=== PATIENT | male | born 1965 | race African-American/Black ===

== ENCOUNTER 2018-02-25 13:50 | Inpatient (IN) ==
[2018-02-25 14:45] LABS: Basophils % 0.3 %; Eosinophils % 0.1 %; Hematocrit 47.7 % (37.5-50.1); Immature Granulocytes % 0.1 % (0-4); Lymphocytes % 26.7 %; Mean Corpuscular HGB Conc 33.5 g/dL (31.6-35.5); Mean Corpuscular Hemoglobin 28.1 pg (28.0-33.3); Mean Corpuscular Volume 83.7 fL (83.0-100.0); Mean Platelet Volume 10.4 fL (9.4-12.4); Monocytes % 7.1 %; Platelet Count 196 K/mcL (140-400); Red Cell Distribution Width 14.9 % (11.5-14.5); Segmented Neutrophils % 65.7 %
[2018-02-25 14:46] LABS: Lymphocytes # 1.9 K/mcL (0.6-4.6); Monocytes # 0.5 K/mcL (0.0-1.3); Neutrophils # 4.7 K/mcL (1.6-8.9)
[2018-02-25 14:58] LABS: Bilirubin,Urine Negative (Negative); Blood,Urine Negative (Negative); Clarity,Urine Clear (Clear); Color,Urine Yellow (Yellow); Glucose,Urine (UA) Normal (Normal); Ketones,Urine Negative (Negative); Leukocyte Esterase,Urine Negative (Negative); Nitrite,Urine Negative (Negative); Protein,Urine Negative (Neg-Trace); Specific Gravity,Urine 1.012 (1.010-1.025); Urobilinogen,Urine Normal (Normal)
--- NOTE | 2018-02-25 14:59 | Emergency Department Note ---
Disposition Clinical Impression: Depression, JUNITO (generalized anxiety disorder) Disposition: Still a Patient Referrals: NONE,PCP [Primary Care Provider] - Forms: ED Satisfaction Letter Psych HPI - General Chief Complaint: ED Psychiatric Symptoms Stated Complaint: SI Time Seen by Provider: 02/25/18 14:00 Source: patient, family Mode of arrival: ambulatory Limitations: no limitations Nursing Notes Reviewed: Yes Vital Signs Reviewed: Yes - History of Present Illness HPI Narrative: 52-year-old -[place] male complaining of a four month history of worsening anxiety and depression with panic attacks. Patient states that on October 31 that he was checked into the [facility] where he remained until November 12. Patient states that he then went to a facility in [place] for 30 day observation and management. Patient states that he has had his medication switched several times at the various facilities and by his PCP. Pt complaint: feels depressed, anxiety If medical clearance, reason: psychiatric condition Onset (ago): month(s) Duration: constant, intermittent (The patient's symptoms are constant with intermittent waxing and waning) Improves with: none Worsens with: none Associated Psychiatric Symptoms: depression, anxiety Associated symptoms: Reports: shortness of breath Self harm or harm to others: denies thoughts of harming self/others, denies having a plan - Related Data Home Medications Medication Instructions Recorded Confirmed Buspirone HCl [Buspar] 15 mg PO TID 02/25/18 02/25/18 Pantoprazole Sodium [Protonix] 40 mg PO DAILY 02/25/18 02/25/18 Quetiapine Fumarate [Seroquel] 600 mg PO HS 02/25/18 02/25/18 Sertraline [Zoloft] 200 mg PO DAILY 02/25/18 02/25/18 Trazodone HCl 300 mg PO HS 02/25/18 02/25/18 cloNIDine HCl [CloNIDine HCl] 0.1 mg PO TID 02/25/18 02/25/18 hydrOXYzine pamoate [Hydroxyzine 100 mg PO QID PRN 02/25/18 02/25/18 Pamoate] Allergies Allergy/AdvReac Type Severity Reaction Status Date / Time No Known Allergies Allergy Verified 02/25/18 13:56 Constitutional: Reports: weakness, weight change Eyes: Reports: vision change Cardiovascular: Denies: chest pain Respiratory: Reports: dyspnea (Patient states that dyspnea may be due to anxiety) Gastrointestinal: Denies: abdominal pain Genitourinary: Denies: dysuria Neurological: Reports: headache (Patient has a history of cluster headaches), weakness, numbness, paresthesias Psychiatric: Reports: anxiety, depression Past Medical History - Past Medical History Medical history: Reports: GERD Psychiatric history: Reports: anxiety, depression, PTSD, previous psychiatric ho spitalization - Social History Smoking Status: Never smoker Smokeless Tobacco Status: No Alcohol use: Reports: occasionally Drug use: Reports: marijuana Physical Exam - General Limitations: no limitations General appearance: alert, in no apparent distress - Head Head exam: atraumatic, normocephalic - Eye Eye exam: Present: normal appearance, PERRL, EOMI. Absent: scleral icterus - Chest Chest inspection: Present: normal inspection, symmetric chest wall rise - Respiratory Respiratory exam: Present: normal lung sounds bilaterally. Absent: respiratory distress, accessory muscle use, prolonged expiratory phase - Cardiovascular Cardiovascular exam: Present: regular rate, normal rhythm, normal heart sounds, +S1, +S2. Absent: JVD, +S3, +S4 - Abdominal Exam Abdominal exam: Present: soft, Non-Tender, normal bowel sounds. Absent: distention, guarding, rebound, rigidity Course Course Narrative: On initial exam, patient is crying and stating that he does not feel that he will ever be his old self again. Patient admits to history of depression but states that his current symptoms of anxiety and panic attacks are new onset over the summer. Patient denies SI/HI. Consult placed to [place] [facility] for consult and possible admission. Vital Signs Temperature 97.8 F 02/25/18 13:54 Pulse Rate 75 02/25/18 13:54 Respiratory Rate 16 02/25/18 13:54 Blood Pressure 155/95 02/25/18 13:54 O2 Sat by Pulse Oximetry 100 02/25/18 13:54 Temperature 97.8 F 02/25/18 14:05 Pulse Rate 75 02/25/18 14:05 Respiratory Rate 22 02/25/18 14:05 Blood Pressure 155/95 02/25/18 14:05 O2 Sat by Pulse Oximetry 100 02/25/18 14:05 Oxygen Delivery Oxygen Delivery Room Air Psych - MDM Narrative Medical decision making narrative: Patient will be admitted to psychiatric services for workup of possible serotonin syndrome due to polypharmacy and multiple medication changes. - Lab Data Result diagrams: 02/25/18 14:16 02/25/18 14:16 Lab Results 02/25/18 02/25/18 02/25/18 Range/Units 14:16 14:16 14:40 WBC 7.2 (4.3-11.1) K/mcL RBC 5.70 H (4.19-5.50) M/mcL Hgb 16.0 (12.9-16.9) g/dL Hct 47.7 (37.5-50.1) % MCV 83.7 (83.0-100.0) fL MCH 28.1 (28.0-33.3) pg MCHC 33.5 (31.6-35.5) g/dL RDW 14.9 H (11.5-14.5) % Plt Count 196 (140-400) K/mcL MPV 10.4 (9.4-12.4) fL Immature Gran % 0.1 (0-4) % Seg Neutrophils % 65.7 % Lymphocytes % 26.7 % Monocytes % 7.1 % Eosinophils % 0.1 % Basophils % 0.3 % Neutrophils # 4.7 (1.6-8.9) K/mcL Lymphocytes # 1.9 (0.6-4.6) K/mcL Monocytes # 0.5 (0.0-1.3) K/mcL Eosinophils # 0.0 (0.0-0.6) K/mcL Basophils # 0.0 (0.0-0.2) K/mcL Sodium 140 (136-145) mEq/L Potassium 3.0 L (3.5-5.1) mEq/L Chloride 105 (98-107) mEq/L Carbon Dioxide 25 (23-29) mEq/L BUN 13 (6-20) mg/dL Creatinine 1.14 (0.70-1.30) mg/dL Est GFR ( Amer) > 60 (> 60) Est GFR (Non-Af Amer) > 60 (> 60) BUN/Creatinine Ratio 11 (6-26) Glucose 111 H (70-105) mg/dL Calculated Osmolality 291 (280-300) Calcium 10.0 (8.6-10.3) mg/dL Urine Color Yellow (Yellow) Urine Clarity Clear (Clear) Urine pH 8.0 (5.0-8.0) pH Units Ur Specific [place] 1.012 (1.010-1.025) Urine Protein Negative (Neg-Trace) mg/dL Urine Glucose (UA) Normal (Normal) mg/dL Urine Ketones Negative (Negative) mg/dL Urine Blood Negative (Negative) Urine Nitrite Negative (Negative) Urine Bilirubin Negative (Negative) Urine Urobilinogen Normal (Normal) mg/dL Ur Leukocyte Esterase Negative (Negative) Salicylates < 2.5 L (15.0-30.0) mg/dL Urine Opiates Screen (Ettcgv=310) ng/mL Acetaminophen < 10 L (10-20) mcg/mL Ur Barbiturates Screen (Mczvfr=895) ng/mL Ur Phencyclidine Scrn (Cutoff=25) ng/mL Ur Amphetamines Screen (Unprqt=2238) ng/mL U Benzodiazepines Scrn (Vnsmrp=309) ng/mL Urine Cocaine Screen (Cutoff= 300) ng/mL U Marijuana (THC) Screen (Cutoff = 50) ng/mL Ur Drug Screen Interp Ethyl Alcohol < 10 (Less than 10) mg/dL 02/25/18 Range/Units 14:40 WBC (4.3-11.1) K/mcL RBC (4.19-5.50) M/mcL Hgb (12.9-16.9) g/dL Hct (37.5-50.1) % MCV (83.0-100.0) fL MCH (28.0-33.3) pg MCHC (31.6-35.5) g/dL RDW (11.5-14.5) % Plt Count (140-400) K/mcL MPV (9.4-12.4) fL Immature Gran % (0-4) % Seg Neutrophils % % Lymphocytes % % Monocytes % % Eosinophils % % Basophils % % Neutrophils # (1.6-8.9) K/mcL Lymphocytes # (0.6-4.6) K/mcL Monocytes # (0.0-1.3) K/mcL Eosinophils # (0.0-0.6) K/mcL Basophils # (0.0-0.2) K/mcL Sodium (136-145) mEq/L Potassium (3.5-5.1) mEq/L Chloride (98-107) mEq/L Carbon Dioxide (23-29) mEq/L BUN (6-20) mg/dL Creatinine (0.70-1.30) mg/dL Est GFR ( Amer) (> 60) Est GFR (Non-Af Amer) (> 60) BUN/Creatinine Ratio (6-26) Glucose (70-105) mg/dL Calculated Osmolality (280-300) Calcium (8.6-10.3) mg/dL Urine Color (Yellow) Urine Clarity (Clear) Urine pH (5.0-8.0) pH Units Ur Specific [place] (1.010-1.025) Urine Protein (Neg-Trace) mg/dL Urine Glucose (UA) (Normal) mg/dL Urine Ketones (Negative) mg/dL Urine Blood (Negative) Urine Nitrite (Negative) Urine Bilirubin (Negative) Urine Urobilinogen (Normal) mg/dL Ur Leukocyte Esterase (Negative) Salicylates (15.0-30.0) mg/dL Urine Opiates Screen Negative (Hrlyaz=959) ng/mL Acetaminophen (10-20) mcg/mL Ur Barbiturates Screen Negative (Cssizt=485) ng/mL Ur Phencyclidine Scrn Negative (Cutoff=25) ng/mL Ur Amphetamines Screen Negative (Svzwqr=7244) ng/mL U Benzodiazepines Scrn Negative (Xetdml=655) ng/mL Urine Cocaine Screen Negative (Cutoff= 300) ng/mL U Marijuana (THC) Screen Positive H (Cutoff = 50) ng/mL Ur Drug Screen Interp See Below Ethyl Alcohol (Less than 10) mg/dL Psychiatric Medical Clearance - Medical Clearance Checklist Medical History: No Social History Section defined Current Vitals: Last Vital Signs Temp 97.8 F 02/25/18 14:05 Pulse 75 02/25/18 14:05 Resp 22 02/25/18 14:05 BP 155/95 02/25/18 14:05 Pulse Ox 100 02/25/18 14:05 Psychiatric Lab Panel: Drug Levels and Toxicity 02/25/18 02/25/18 14:16 14:40 Urine Opiates Screen Negative Acetaminophen < 10 L Ur Barbiturates Screen Negative Ur Phencyclidine Scrn Negative Ur Amphetamines Screen Negative U Benzodiazepines Scrn Negative Urine Cocaine Screen Negative U Marijuana (THC) Screen Positive H Ethyl Alcohol < 10 Abnormal Labs: Abnormal lab results RBC 5.70 M/mcL (4.19-5.50) H 02/25/18 14:16 RDW 14.9 % (11.5-14.5) H 02/25/18 14:16 Potassium 3.0 mEq/L (3.5-5.1) L 02/25/18 14:16 Glucose 111 mg/dL (70-105) H 02/25/18 14:16 Salicylates < 2.5 mg/dL (15.0-30.0) L 02/25/18 14:16 Acetaminophen < 10 mcg/mL (10-20) L 02/25/18 14:16 U Marijuana (THC) Screen Positive ng/mL (Cutoff = 50) H 02/25/18 14:40 Statement of Medical Clearance: I have evaluated the patient, reviewed diagnostic information, and certify that the patient's medical condition is sufficiently stable that transfer to the psychiatric unit does not pose a significant risk of deterioration.
[2018-02-25 15:03] LABS: Acetaminophen < 10 mcg/mL (10-20); BUN/Creatinine Ratio 11 (6-26); Blood Urea Nitrogen 13 mg/dL (6-20); Carbon Dioxide 25 mEq/L (23-29); Chloride 105 mEq/L (98-107); Ethanol < 10 mg/dL (Less than 10); Glucose 111 mg/dL (70-105); Osmolality,Calculated 291 (280-300); Salicylate < 2.5 mg/dL (15.0-30.0); Sodium 140 mEq/L (136-145); eGFR For Non-African Americans > 60 (> 60)
--- NOTE | 2018-02-25 15:13 | Emergency Department Note ---
Disposition Clinical Impression: Depression, JUNITO (generalized anxiety disorder) Disposition: Still a Patient Referrals: NONE,PCP [Primary Care Provider] - General Adult HPI - General Chief complaint: ED Psychiatric Symptoms Stated complaint: SI Time Seen by Provider: 02/25/18 14:00 Source: patient, family Mode of arrival: ambulatory Limitations: no limitations - History of Present Illness Pain Scale: 3 - Related Data Home Medications Medication Instructions Recorded Confirmed Buspirone HCl [Buspar] 15 mg PO TID 02/25/18 02/25/18 Pantoprazole Sodium [Protonix] 40 mg PO DAILY 02/25/18 02/25/18 Quetiapine Fumarate [Seroquel] 600 mg PO HS 02/25/18 02/25/18 Sertraline [Zoloft] 200 mg PO DAILY 02/25/18 02/25/18 Trazodone HCl 300 mg PO HS 02/25/18 02/25/18 cloNIDine HCl [CloNIDine HCl] 0.1 mg PO TID 02/25/18 02/25/18 hydrOXYzine pamoate [Hydroxyzine 100 mg PO QID PRN 02/25/18 02/25/18 Pamoate] Allergies Allergy/AdvReac Type Severity Reaction Status Date / Time No Known Allergies Allergy Verified 02/25/18 13:56 Constitutional: Reports: weakness, weight change Eyes: Reports: vision change Cardiovascular: Denies: chest pain Respiratory: Reports: dyspnea (Patient states that dyspnea may be due to anxiety) Gastrointestinal: Denies: abdominal pain Genitourinary: Denies: dysuria Neurological: Reports: headache (Patient has a history of cluster headaches), weakness, numbness, paresthesias Psychiatric: Reports: anxiety, depression Past Medical History - Past Medical History Medical history: Reports: GERD Psychiatric history: Reports: anxiety, depression, PTSD, previous psychiatric hospitalization - Social History Smoking Status: Never smoker Smokeless Tobacco Status: No Alcohol use: Reports: occasionally Drug use: Reports: marijuana Physical Exam - General Limitations: no limitations General appearance: alert, in no apparent distress Course Vital Signs Temperature 97.8 F 02/25/18 13:54 Pulse Rate 75 02/25/18 13:54 Respiratory Rate 16 02/25/18 13:54 Blood Pressure 155/95 02/25/18 13:54 O2 Sat by Pulse Oximetry 100 02/25/18 13:54 Temperature 97.8 F 02/25/18 14:05 Pulse Rate 75 02/25/18 14:05 Respiratory Rate 22 02/25/18 14:05 Blood Pressure 155/95 02/25/18 14:05 O2 Sat by Pulse Oximetry 100 02/25/18 14:05 Oxygen Delivery Oxygen Delivery Room Air Medical Decision Making - Lab Data Result diagrams: 02/25/18 14:16 02/25/18 14:16 Lab Results 02/25/18 02/25/18 02/25/18 Range/Units 14:16 14:16 14:40 WBC 7.2 (4.3-11.1) K/mcL RBC 5.70 H (4.19-5.50) M/mcL Hgb 16.0 (12.9-16.9) g/dL Hct 47.7 (37.5-50.1) % MCV 83.7 (83.0-100.0) fL MCH 28.1 (28.0-33.3) pg MCHC 33.5 (31.6-35.5) g/dL RDW 14.9 H (11.5-14.5) % Plt Count 196 (140-400) K/mcL MPV 10.4 (9.4-12.4) fL Immature Gran % 0.1 (0-4) % Seg Neutrophils % 65.7 % Lymphocytes % 26.7 % Monocytes % 7.1 % Eosinophils % 0.1 % Basophils % 0.3 % Neutrophils # 4.7 (1.6-8.9) K/mcL Lymphocytes # 1.9 (0.6-4.6) K/mcL Monocytes # 0.5 (0.0-1.3) K/mcL Eosinophils # 0.0 (0.0-0.6) K/mcL Basophils # 0.0 (0.0-0.2) K/mcL Sodium 140 (136-145) mEq/L Potassium 3.0 L (3.5-5.1) mEq/L Chloride 105 (98-107) mEq/L Carbon Dioxide 25 (23-29) mEq/L BUN 13 (6-20) mg/dL Creatinine 1.14 (0.70-1.30) mg/dL Est GFR ( Amer) > 60 (> 60) Est GFR (Non-Af Amer) > 60 (> 60) BUN/Creatinine Ratio 11 (6-26) Glucose 111 H (70-105) mg/dL Calculated Osmolality 291 (280-300) Calcium 10.0 (8.6-10.3) mg/dL Urine Color Yellow (Yellow) Urine Clarity Clear (Clear) Urine pH 8.0 (5.0-8.0) pH Units Ur Specific [place] 1.012 (1.010-1.025) Urine Protein Negative (Neg-Trace) mg/dL Urine Glucose (UA) Normal (Normal) mg/dL Urine Ketones Negative (Negative) mg/dL Urine Blood Negative (Negative) Urine Nitrite Negative (Negative) Urine Bilirubin Negative (Negative) Urine Urobilinogen Normal (Normal) mg/dL Ur Leukocyte Esterase Negative (Negative) Salicylates < 2.5 L (15.0-30.0) mg/dL Acetaminophen < 10 L (10-20) mcg/mL Ur Drug Screen Interp Ethyl Alcohol < 10 (Less than 10) mg/dL 02/25/18 Range/Units 14:40 WBC (4.3-11.1) K/mcL RBC (4.19-5.50) M/mcL Hgb (12.9-16.9) g/dL Hct (37.5-50.1) % MCV (83.0-100.0) fL MCH (28.0-33.3) pg MCHC (31.6-35.5) g/dL RDW (11.5-14.5) % Plt Count (140-400) K/mcL MPV (9.4-12.4) fL Immature Gran % (0-4) % Seg Neutrophils % % Lymphocytes % % Monocytes % % Eosinophils % % Basophils % % Neutrophils # (1.6-8.9) K/mcL Lymphocytes # (0.6-4.6) K/mcL Monocytes # (0.0-1.3) K/mcL Eosinophils # (0.0-0.6) K/mcL Basophils # (0.0-0.2) K/mcL Sodium (136-145) mEq/L Potassium (3.5-5.1) mEq/L Chloride (98-107) mEq/L Carbon Dioxide (23-29) mEq/L BUN (6-20) mg/dL Creatinine (0.70-1.30) mg/dL Est GFR ( Amer) (> 60) Est GFR (Non-Af Amer) (> 60) BUN/Creatinine Ratio (6-26) Glucose (70-105) mg/dL Calculated Osmolality (280-300) Calcium (8.6-10.3) mg/dL Urine Color (Yellow) Urine Clarity (Clear) Urine pH (5.0-8.0) pH Units Ur Specific [place] (1.010-1.025) Urine Protein (Neg-Trace) mg/dL Urine Glucose (UA) (Normal) mg/dL Urine Ketones (Negative) mg/dL Urine Blood (Negative) Urine Nitrite (Negative) Urine Bilirubin (Negative) Urine Urobilinogen (Normal) mg/dL Ur Leukocyte Esterase (Negative) Salicylates (15.0-30.0) mg/dL Acetaminophen (10-20) mcg/mL Ur Drug Screen Interp See Below Ethyl Alcohol (Less than 10) mg/dL Attestation Statement - Attestation Attestation: I examined this patient and my medical decision-making was reviewed with the Resident Physician. I agree with the documented findings, disposition and treatment plan as described except to the extent set forth below. 52-year-old male presents emergency room for anxiety panic attacks problem. Patient had a recent admission to [facility] in [place] as well as in a rehabilitation facility in [place] for generalized anxiety problems. He had been on benzos and they weaned him off his benzodiazepine. He states he was started on a plethora of other medications to help him sleep and other depression and anxiety problems. This left him with problems with ambulation at times. He was sent back to [place] list was to follow-up with psychiatry but was unable to see them due to insurance problems. He saw his PCP who sent him to the ER today to get his problems fixed. He denies any homicidal or suicidal thoughts. All the screening lab work and urine drug screen is unremarkable. He has underlying distress with his current living situation with his half- Sister. We will consult with psychiatry to see what the recommendations are.
[2018-02-25 15:16] LABS: Amphetamine Screen,Urine Negative ng/mL (Cutoff=1000); Barbiturate Screen,Urine Negative ng/mL (Cutoff=200); Benzodiazepines Screen,Urine Negative ng/mL (Cutoff=200); Cannabinoid Screen,Urine Positive ng/mL (Cutoff = 50); Cocaine Screen,Urine Negative ng/mL (Cutoff= 300); Opiate Screen,Urine Negative ng/mL (Cutoff=300); Phencyclidine Screen,Urine Negative ng/mL (Cutoff=25)
[2018-02-25] MEDS ORDERED: *HR* LORazepam 1 MG TABLET PO ONE (17:21)
[2018-02-25 17:28] LABS: Creatine Kinase 94 Units/L (30-223)
[2018-02-25] MEDS ORDERED: Mag Hydrox/Al Hydrox/Simeth 30 ML UDC PO PRN (19:19)
[2018-02-25] MEDS ORDERED: *HR* LORazepam 1 MG TABLET PO PRN (19:19)
[2018-02-25] MEDS ORDERED: Haloperidol Lactate 5 MG/ML VIAL IM PRN (19:19)
[2018-02-25] MEDS ORDERED: *HR* LORazepam 2 MG/ML VIAL IM PRN (19:19)
[2018-02-25] MEDS ORDERED: MOM Conc 10 ML UD.LIQ PO PRN (19:19)
[2018-02-25] MEDS ORDERED: Ibuprofen 400 MG TABLET PO PRN (19:19)
[2018-02-25] MEDS: hydrOXYzine pamoate 25 MG CAPSULE PO PRN (21:52)
[2018-02-25] MEDS: Cyprohepatdine 4 MG TABLET PO SCH (21:54)
[2018-02-25] MEDS: cloNIDine HCl 0.1 MG TABLET PO PRN (21:54)
[2018-02-25] MEDS: *HR* LORazepam 1 MG TABLET PO SCH (21:58)
[2018-02-26] MEDS: Cyprohepatdine 4 MG TABLET PO SCH ×3 (09:04→21:56)
[2018-02-26] MEDS: *HR* LORazepam 1 MG TABLET PO SCH ×3 (09:05→21:56)
--- NOTE | 2018-02-26 16:09 | Psychiatry History & Physical ---
Date of Encounter: 02/26/18 Time of Encounter: 16:00 History of Present Illness Patient Stated Chief Complaint: /it is stressful Medicare Admission Attestation: For traditional Medicare patients the provided hospital inpatient services are reasonable and necessary and in the case of services not specified as inpatient-only under 42 CFR 419.22 (n), that they are appropriately provided as inpatient services in accordance 42 CFR 412.3. For Critical Access Hospital the patient may reasonably be expected to be discharged or transferred to a hospital within 96 hours after admission to the Critical Access Hospital. Admitted From: Emergency Dept Plans for Post Hospital Care: Home History of Present Illness: Mr. Locke is a 52 year old male ID the patient is a 52-year-old -Ind[place]ian man of mixed heritage. Chief complaint. The patient had a pre-existing history of anxiety and reports anxiety as a child. The patient has a family doctor Dr. Canales who is treated him for the past [address] Canales had placed him on bupropion and clonazepam. The patient was on 2 mg twice a day and he presented to [facility] and was there from through November 12. While at [facility] a determine the clonazepam was the problem and decided to send him to destination help. Patient was in a special program at the [facility] he denies significant problems with alcohol or drugs of abuse and was in this particular facility from November 12 through January 13 2 months and during this time the patient was started on a variety of medicines. It suffices to say that medicines were increased during the time the patient distracted developed a gait and coordination disturbance and the patient returned home taking the same regimen of medicines from January through his most recent present patient to the ER. His presentation the ER revealed myoclonic myoclonic jerks sweating hyperacusis restlessness in coordination. While I was not able to observe this the patient's medications were reviewed and was felt that he was at high risk for serotonin syndrome although he did not meet full criteria. The patient did not have elevation in temperature vital signs. During his periods that time the patient has had weight loss and some muscle wasting or loss either from lack of exercise or another process. The state pharmacy report shows a was on clonazepam 2 mg twice a day last filled 2017. The patient also has cluster headaches and is on the medicine Stadol nasal spray. During the time of treatment with Seroquel and Zoloft and BuSpar and others he had trembling sweat sweating profusely incoordination the hands and feet twitches gait disturbance he still thinks his balance is not right hand wringing tones in the ears and high-pitched sounds. Overall the patient's bowels were constipated in the past is been told that he has major depression. The past few weeks have been stressful this has to do with the relationship with his half-sister. Not go further into the history although I diagnosis of PT and the diagnosis was psychotic disorder. Past medical history and indwelling Reason of the eye was operated on the patient is status post vasectomy's adolescent lipomas review. Illnesses GERD irritable bowel syndrome headaches. He has seasonal allergies on fluconazole. His no known drug allergies. The patient's family history is significant for a multiplex family maternal grandmother was an silent. The patient was born the patient's father had schizoaffective disorder was born in a psychiatric hospital. The patient's mother had a psychiatric problem and required psychiatric hospitalization after a rape. His aunt by suicide in uncle by suicide sister has Visit sister has schizoaffective disorder. And he is believes that additional aunts uncles and cousins had suicide. Patient's father was alcoholic. Sisters drink sister drinks to excess. Social history the patient completed high school. 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 Past Med Surg Social Fam HX - Past Medical History Source: patient Medical history: GERD - Past Psychiatric History Psychiatric history: Reports: anxiety, depression Family psychiatric history: Yes Family History of Suicide: Completed - Past Surgical History Surgical History: vasectomy - Social History Smoking Status: Never smoker Smokeless Tobacco Status: No Alcohol use: occasionally Drug use: marijuana Occupational status: retired Current living situation: With Family Activity Level: Independent ambulation Recent Out of Country Travel Within the Last 8 Weeks: Yes Exposure or Possible Exposure to Illness During Travel: Yes - Family History Mother Adopted: No Family Member Ethnicity: Non- Living Status: Age at : 60 Cause of : mycoses mafreded Hx Family Cardiac Disorders: Yes Hx Family Respiratory Disorders: No Hx Family Cancer: No Hx Family GI Disorders: No Hx Family Genitourinary Disorders: No Hx Family Endocrine Disorder: No Hx Family Musculoskeletal Disorders: No Hx Family Neuromuscular Disorders: No Hx Family Neurologic Disorders: No Hx Family HEENT Disorders: No Hx Family Autoimmune Disorders: No Hx Family Reproductive Disorders: No Hx Family Psychosocial Disorders: Yes (schizophrenic, bipolar) Hx Family Medical Disorders: No Medications & Allergies Buspirone HCl [Buspar] 15 mg PO TID 02/25/18 [History] Pantoprazole Sodium [Protonix] 40 mg PO DAILY 02/25/18 [History] Quetiapine Fumarate [Seroquel] 600 mg PO HS 02/25/18 [History] Sertraline [Zoloft] 200 mg PO DAILY 02/25/18 [History] Trazodone HCl 300 mg PO HS 02/25/18 [History] cloNIDine HCl [CloNIDine HCl] 0.1 mg PO TID 02/25/18 [History] hydrOXYzine pamoate [Hydroxyzine Pamoate] 100 mg PO QID PRN 02/25/18 [History] Allergy/AdvReac Type Severity Reaction Status Date / Time No Known Allergies Allergy Verified 02/25/18 13:56 Review of Systems Integumentary: Denies: rash, lesions, pruritus Neurological: Reports: weakness, abnormal gait Psychiatric: Reports: depression, anxiety, abnormal sleep pattern Endocrine: Denies: fatigue, heat or cold intolerance Exam - HEENT Head exam IM: Present: atraumatic Eye exam IM: Present: EOMI, normal appearance, PERRL ENT exam IM: Present: normal exam - Neurological Neurological exam: Present: CN II-XII intact - Respiratory Respiratory exam IM: Present: CTAB - GI/Abdominal GI/Abdominal exam IM: Present: normal bowel sounds, soft. Absent: tenderness - Extremities Extremities exam IM: Present: full ROM - Skin Skin exam IM: Present: dry, warm - Constitutional Vitals: Temp Pulse Resp BP Pulse Ox 98.6 F 82 16 124/77 98 02/26/18 09:00 02/26/18 09:00 02/26/18 09:00 02/26/18 09:00 02/26/18 09:00 General appearance: age & developmentally appropriate, well-groomed, well- nourished - Musculoskeletal Gait: normal Station: relaxed Strength & Tone: normal for patient - Psychiatric Patient Orientation: Yes Person, Yes Time, Yes Place Level of alertness: Alert Behavior: calm, cooperative Psychomotor activity: Normal Eye Contact: Maintains Eye Contact Mood Description: Euthymic/stable Affect description: congruent with mood, full range Speech Volume: Normal Speech pattern: normal rate, normal rhythm, normal tone, fluent, spontaneous Language & Vocabulary: consistent with education Thought Process: Linear, Goal Oriented Thought Content: No Suicidal ideation, No Homicidal ideation, No Overt delusions Perceptual Disturbances: No Auditory hallucinations, No Visual hallucinations Attention Span Ability: Capable of Focused Attention Memory Description: Grossly Intact Patient Reliability: Reliable Historian Fund of knowledge: Yes abstraction ability, Yes average, Yes aware of current events Intelligence Estimate: Average Judgment: Limited Insight: Partial Results - Drug Levels and Toxicology Drug Levels and Toxicology: Drug Levels and Toxicity 02/25/18 14:16 Acetaminophen < 10 L Ethyl Alcohol < 10 - Labs Labs: Laboratory Last Values WBC 7.2 K/mcL (4.3-11.1) 02/25/18 14:16 RBC 5.70 M/mcL (4.19-5.50) H 02/25/18 14:16 Hgb 16.0 g/dL (12.9-16.9) 02/25/18 14:16 Hct 47.7 % (37.5-50.1) 02/25/18 14:16 MCV 83.7 fL (83.0-100.0) 02/25/18 14:16 MCH 28.1 pg (28.0-33.3) 02/25/18 14:16 MCHC 33.5 g/dL (31.6-35.5) 02/25/18 14:16 RDW 14.9 % (11.5-14.5) H 02/25/18 14:16 Plt Count 196 K/mcL (140-400) 02/25/18 14:16 MPV 10.4 fL (9.4-12.4) 02/25/18 14:16 Immature Gran % 0.1 % (0-4) 02/25/18 14:16 Seg Neutrophils % 65.7 % 02/25/18 14:16 Lymphocytes % 26.7 % 02/25/18 14:16 Monocytes % 7.1 % 02/25/18 14:16 Eosinophils % 0.1 % 02/25/18 14:16 Basophils % 0.3 % 02/25/18 14:16 Neutrophils # 4.7 K/mcL (1.6-8.9) 02/25/18 14:16 Lymphocytes # 1.9 K/mcL (0.6-4.6) 02/25/18 14:16 Monocytes # 0.5 K/mcL (0.0-1.3) 02/25/18 14:16 Eosinophils # 0.0 K/mcL (0.0-0.6) 02/25/18 14:16 Basophils # 0.0 K/mcL (0.0-0.2) 02/25/18 14:16 Sodium 140 mEq/L (136-145) 02/25/18 14:16 Potassium 3.0 mEq/L (3.5-5.1) L 02/25/18 14:16 Chloride 105 mEq/L (98-107) 02/25/18 14:16 Carbon Dioxide 25 mEq/L (23-29) 02/25/18 14:16 BUN 13 mg/dL (6-20) 02/25/18 14:16 Creatinine 1.14 mg/dL (0.70-1.30) 02/25/18 14:16 Est GFR ( Amer) > 60 (> 60) 02/25/18 14:16 Est GFR (Non-Af Amer) > 60 (> 60) 02/25/18 14:16 BUN/Creatinine Ratio 11 (6-26) 02/25/18 14:16 Glucose 111 mg/dL (70-105) H 02/25/18 14:16 Calculated Osmolality 291 (280-300) 02/25/18 14:16 Calcium 10.0 mg/dL (8.6-10.3) 02/25/18 14:16 Creatine Kinase 94 Units/L (30-223) 02/25/18 14:16 Urine Color Yellow (Yellow) 02/25/18 14:40 Urine Clarity Clear (Clear) 02/25/18 14:40 Urine pH 8.0 pH Units (5.0-8.0) 02/25/18 14:40 Ur Specific [place] 1.012 (1.010-1.025) 02/25/18 14:40 Urine Protein Negative mg/dL (Neg-Trace) 02/25/18 14:40 Urine Glucose (UA) Normal mg/dL (Normal) 02/25/18 14:40 Urine Ketones Negative mg/dL (Negative) 02/25/18 14:40 Urine Blood Negative (Negative) 02/25/18 14:40 Urine Nitrite Negative (Negative) 02/25/18 14:40 Urine Bilirubin Negative (Negative) 02/25/18 14:40 Urine Urobilinogen Normal mg/dL (Normal) 02/25/18 14:40 Ur Leukocyte Esterase Negative (Negative) 02/25/18 14:40 Salicylates < 2.5 mg/dL (15.0-30.0) L 02/25/18 14:16 Urine Opiates Screen Negative ng/mL (Cvdecb=154) 02/25/18 14:40 Acetaminophen < 10 mcg/mL (10-20) L 02/25/18 14:16 Ur Barbiturates Screen Negative ng/mL (Mqikeg=496) 02/25/18 14:40 Ur Phencyclidine Scrn Negative ng/mL (Cutoff=25) 02/25/18 14:40 Ur Amphetamines Screen Negative ng/mL (Ljpmxo=8956) 02/25/18 14:40 U Benzodiazepines Scrn Negative ng/mL (Asvdbj=119) 02/25/18 14:40 Urine Cocaine Screen Negative ng/mL (Cutoff= 300) 02/25/18 14:40 U Marijuana (THC) Screen Positive ng/mL (Cutoff = 50) H 02/25/18 14:40 Ur Drug Screen Interp See Below 02/25/18 14:40 Ethyl Alcohol < 10 mg/dL (Less than 10) 02/25/18 14:16 Assessment and Plan (1) Depression with anxiety Current visit: Yes Status: Acute Plan: Admit inpatient for safety and stabilization, Close observation, Suicide Precautions per unit protocol, Encourage participation in unit milieu, Group Therapy, Monitor sleep, Monitor appetite Risks, benefits, side effects, alternatives discussed w/pt: Yes Patient agreeable to treatment: Yes Plans for Post Hospital Care: Home Estimated Length of Stay (Days): 3 (2) Panic disorder without agoraphobia Current visit: Yes Status: Acute Plan: Admit inpatient for safety and stabilization, Close observation, Suicide Precautions per unit protocol Risks, benefits, side effects, alternatives discussed w/pt: Yes Patient agreeable to treatment: Yes Plans for Post Hospital Care: Home (3) Adverse reaction to SSRI (selective serotonin reuptake inhibitor) Current visit: Yes Status: Suspected Plan: Admit inpatient for safety and stabilization, Close observation Risks, benefits, side effects, alternatives discussed w/pt: Yes Patient agreeable to treatment: Yes Plans for Post Hospital Care: Home Qualifiers: Encounter type: initial encounter Qualified Code(s): T43.225A - Adverse effect of selective serotonin reuptake inhibitors, initial encounter (4) Other drug induced movement disorders Current visit: Yes Status: Acute Plan: Admit inpatient for safety and stabilization, Close observation Risks, benefits, side effects, alternatives discussed w/pt: Yes Patient agreeable to treatment: Yes Plans for Post Hospital Care: Home (5) Serotonergic syndrome Current visit: Yes Status: Suspected Plan: Close observation Risks, benefits, side effects, alternatives discussed w/pt: Yes Patient agreeable to treatment: Yes Plans for Post Hospital Care: Home
[2018-02-26] MEDS ORDERED: *HR* LORazepam 0.5 MG TABLET ONE (16:19)
[2018-02-26] MEDS: *HR* LORazepam 0.5 MG TABLET ONE ×2 (16:36→16:42)
[2018-02-26] MEDS: cloNIDine HCl 0.1 MG TABLET PO PRN (21:56)
[2018-02-27] MEDS: Cyprohepatdine 4 MG TABLET PO SCH ×3 (08:46→21:51)
[2018-02-27] MEDS: *HR* LORazepam 1 MG TABLET PO SCH ×3 (08:46→21:51)
--- NOTE | 2018-02-27 19:29 | Psychiatry Progress Note ---
Addendum entered and electronically signed by Sean Novak MD 02/27/18 15:25: Patient has agreed to a reduction in lorazepam and to go on benzodiazepine. I think the benzodiazepine monotherapy might be good for him. Efforts to reduce cyproheptadine would be helpful. On examination the patient does not demonstrate the same level of hyperreflexia slight tremor he has no myoclonic jerks he has minimal nystagmus and no missed nystagmus on vertical gaze. Overall this supports the diagnosis of serotonin syndrome that has been treated. The patient should avoid SSRIs going forward. I have discussed the features of schizotypal personality disorder. There are 10 features of this of which he might have 5. But I diagnosis has not been given. Original Note: Date of Encounter: 02/27/18 Time of Encounter: 15:00 Subjective Interval history: 52 yo who returns for follow up CC: I might like to stay on a benzodiazepine HPI: Patient has identified his belief in a 6th sense. He has adverse reaction to SSRI. He has a diagnosis of JUNITO. Have given him a diagnosis of Depression with Anxiety. Review of Systems Psychiatric: Reports: depression, anxiety, abnormal sleep pattern, panic attacks Results - Vital Signs Vital Signs: Temp Pulse Resp BP Pulse Ox 98.4 F 90 18 135/91 100 02/27/18 09:00 02/27/18 09:00 02/27/18 09:00 02/27/18 09:00 02/27/18 09:00 Assessment and Plan (1) Depression with anxiety Current visit: Yes Status: Acute Plan: Continue hospitalization, Close observation, Suicide Precautions per unit protocol, Encourage participation in unit milieu Risks, benefits, side effects , alternatives discussed w/pt: Yes Patient agreeable to treatment: Yes (2) Panic disorder without agoraphobia Current visit: Yes Status: Acute Plan: Continue hospitalization, Close observation, Encourage participation in unit milieu, Group Therapy, Monitor sleep Risks, benefits, side effects, alternatives discussed w/pt: Yes Patient agreeable to treatment: Yes (3) Adverse reaction to SSRI (selective serotonin reuptake inhibitor) Current visit: Yes Status: Suspected Risks, benefits, side effects, alternatives discussed w/pt: Yes Patient agreeable to treatment: Yes Qualifiers: Encounter type: initial encounter Qualified Code(s): T43.225A - Adverse effect of selective serotonin reuptake inhibitors, initial encounter (4) Other drug induced movement disorders Current visit: Yes Status: Acute Plan: Group Therapy, Monitor sleep, Monitor appetite, Secure weapons Risks, benefits, side effects, alternatives discussed w/pt: Yes Patient agreeable to treatment: Yes (5) Serotonergic syndrome Current visit: Yes Status: Suspected Risks, benefits, side effects, alternatives discussed w/pt: Yes Patient agreeable to treatment: Yes Consult Discharge Plan - Plan Referrals: [facility] [Outside] - 03/05/18 3:50 pm (The above appointment is with Dr. Russell for outpatient psychiatric assessment and medication management services. You will also see Samantha Landis for outpatient mental health counseling services on 04/10/2018 at 11:00 AM. Please arrive 10 minutes early to complete the check-in process. Please bring your insurance card (or [facility] award letter) and photo ID. If you are unable to keep this appointment, 24 hour business notice of cancellation is expected. If you miss your new patient appointment with any provider without providing appropriate notice, you cannot be re- scheduled for that service. The above appointment(s) reflects first availability. You may contact the office regularly to check for cancellations that may allow you to be seen sooner. The [facility] is the 1st building behind [facility] in [place], [place]. Please do not use GPS or mapping apps to locate the office, as they will take you to the wrong location. ) Psychiatry Exam - Constitutional Vitals: Temp Pulse Resp BP Pulse Ox 98.4 F 90 18 135/91 100 02/27/18 09:00 02/27/18 09:00 02/27/18 09:00 02/27/18 09:00 02/27/18 09:00 General appearance: age & developmentally appropriate, well-groomed, well- nourished - Musculoskeletal Gait: normal Station: relaxed Strength & Tone: normal for patient - Psychiatric Patient Orientation: Yes Person, Yes Time, Yes Place Level of alertness: Alert Behavior: calm, cooperative Psychomotor activity: Normal Eye Contact: Maintains Eye Contact Mood Description: Euthymic/stable, Anxious Affect description: congruent with mood, full range, inappropriate to situation Speech Volume: Normal Speech pattern: normal rate, normal rhythm, normal tone, fluent, spontaneous, inappropriate to situation, repetetive Language & Vocabulary: consistent with education Thought Process: Linear, Goal Oriented Thought Content: No Suicidal ideation, No Homicidal ideation, No Overt delusions Perceptual Disturbances: No Auditory hallucinations, No Visual hallucinations Attention Span Ability: Capable of Focused Attention Memory Description: Grossly Intact Patient Reliability: Reliable Historian Fund of knowledge: Yes abstraction ability, Yes aware of current events Intelligence Estimate: Average Judgment: Fair Insight: Partial
[2018-02-27] MEDS: cloNIDine HCl 0.1 MG TABLET PO PRN (21:51)
[2018-02-28] MEDS: *HR* LORazepam 1 MG TABLET PO SCH ×2 (09:42→21:45)
[2018-02-28] MEDS: Cyprohepatdine 4 MG TABLET PO SCH ×2 (09:42→21:45)
--- NOTE | 2018-02-28 09:42 | Psychiatry Progress Note ---
Date of Encounter: 02/28/18 Time of Encounter: 09:39 Subjective Interval history: Client is pleasant but has a lot of questions today. Asking about Schizotypal Personality Disorder. Unsure if it fits him or not. Denies SI and says this has not been a problem for him in the past. However, he does struggle with depression and anxiety. Currently on far less meds than he came in on. Thinks this has been an improvement but he is still testing the pierre. Previous physician thought he may have experienced Serotonin Syndrome. Taken off offending agents. Will not change anything today as he has had multiple med changes recently and he needs more time to adjust. Review of Systems Constitutional: Denies: fever, chills, weakness, weight change Eyes: Denies: eye pain, vision change Ears, Nose, Throat: Denies: ear pain, throat pain, dental pain, hearing loss, congestion Cardiovascular: Denies: chest pain, palpitations, dyspnea on exertion Respiratory: Denies: cough, dyspnea, wheezes Gastrointestinal: Denies: abdominal pain, nausea, vomiting, diarrhea, constipation Musculoskeletal: Denies: joint swelling, joint pain Neurological: Denies: headache, weakness, numbness, memory loss Psychiatric: Reports: depression, anxiety, abnormal sleep pattern, panic attacks Results - Vital Signs Vital Signs: Temp Pulse Resp BP Pulse Ox 98.1 F 75 18 131/89 99 02/28/18 09:00 02/28/18 09:00 02/28/18 09:00 02/28/18 09:00 02/28/18 09:00 Assessment and Plan (1) Depression Current visit: Yes Status: Acute Plan: Continue hospitalization, Close observation, Suicide Precautions per unit protocol, Encourage participation in unit milieu, Group Therapy, Monitor sleep, Monitor appetite Risks, benefits, side effects, alternatives discussed w/pt: Yes Patient agreeable to treatment: Yes Qualifiers: Depression Type: major depressive disorder Major depression recurrence: recurrent Active/Remission status: currently active Major depression episode severity: moderate Qualified Code(s): F33.1 - Major depressive disorder, recurrent, moderate (2) JUNITO (generalized anxiety disorder) Current visit: Yes Status: Acute Plan: Continue hospitalization, Close observation, Suicide Precautions per unit protocol, Encourage participation in unit milieu, Group Therapy, Monitor sleep, Monitor appetite Risks, benefits, side effects, alternatives discussed w/pt: Yes Patient agreeable to treatment: Yes (3) Adverse reaction to SSRI (selective serotonin reuptake inhibitor) Current visit: Yes Status: Suspected Plan: Continue hospitalization, Close observation, Suicide Precautions per unit protocol, Encourage participation in unit milieu, Group Therapy, Monitor sleep, Monitor appetite Risks, benefits, side effects, alternatives discussed w/pt: Yes Patient agreeable to treatment: Yes Qualifiers: Encounter type: initial encounter Qualified Code(s): T43.225A - Adverse effect of selective serotonin reuptake inhibitors, initial encounter Consult Discharge Plan - Plan Referrals: [facility] [Outside] - 03/05/18 3:50 pm (The above appointment is with Dr. Russell for outpatient psychiatric assessment and medication management services. You will also see Samantha Landis for outpatient mental health counseling services on 04/10/2018 at 11:00 AM. Please arrive 10 minutes early to complete the check-in process. Please bring your insurance card (or [facility] award letter) and photo ID. If you are unable to keep this appointment, 24 hour business notice of cancellation is expected. If you miss your new patient appointment with any provider without providing appropriate notice, you cannot be re- scheduled for that service. The above appointment(s) reflects first availability. You may contact the office regularly to check for cancellations that may allow you to be seen sooner. The [facility] is the 1st building behind [facility] in [place], [place]. Please do not use GPS or mapping apps to locate the office, as they will take you to the wrong location. ) Psychiatry Exam - Constitutional Vitals: Temp Pulse Resp BP Pulse Ox 98.1 F 75 18 131/89 99 02/28/18 09:00 02/28/18 09:00 02/28/18 09:00 02/28/18 09:00 02/28/18 09:00 General appearance: age & developmentally appropriate, well-groomed, well- nourished - Musculoskeletal Gait: normal Station: relaxed Strength & Tone: normal for patient - Psychiatric Patient Orientation: Yes Person, Yes Time, Yes Place Level of alertness: Alert Behavior: calm, cooperative Psychomotor activity: Normal Eye Contact: Maintains Eye Contact Mood Description: Depressed, Anxious Affect description: congruent with mood Speech Volume: Normal Speech pattern: normal rate, normal rhythm, normal tone, fluent, spontaneous Language & Vocabulary: consistent with education Thought Process: Linear, Goal Oriented Thought Content: No Suicidal ideation, No Homicidal ideation, No Overt delusions Perceptual Disturbances: No Auditory hallucinations, No Visual hallucinations Attention Span Ability: Capable of Focused Attention Memory Description: Grossly Intact Patient Reliability: Reliable Historian Fund of knowledge: Yes abstraction ability, Yes aware of current events Intelligence Estimate: Average Judgment: Fair Insight: Partial
[2018-02-28] MEDS: cloNIDine HCl 0.1 MG TABLET PO PRN (21:45)
--- NOTE | 2018-02-28 22:23 | Electrocardiograph Report ---
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
[2018-03-01] MEDS: Cyprohepatdine 4 MG TABLET PO SCH ×2 (09:21→21:07)
[2018-03-01] MEDS: *HR* LORazepam 1 MG TABLET PO SCH ×2 (09:21→21:07)
--- NOTE | 2018-03-01 10:26 | Psychiatry Progress Note ---
Date of Encounter: 03/01/18 Time of Encounter: 10:21 Subjective Interval history: Client reports he is feeling more depressed today. "Melancholy. Dysthymic." Not currently on any antidepressants. Thought to have experienced Serotonin Syndrome from previous med regimen. Talked about adding back an antidepressant today but avoiding SSRIs/SNRIs. He has been on Wellbutrin before without any negative side effects. Discussed restarting it today and considering Abilify as an adjunct down the road. He was agreeable. Suspect he has Dysthymia in addition to a Major Depression as client endorses symptoms of negativity, pessimism, and low mood dating back to high school. Has been described as "Eeyore" by those who know him. Discussed how Dysthymia can be more resistant to treatment. Client also mentioned that he took a testosterone supplement at one point in his life and that this period of time was the best he has ever felt. Discussed need to have testosterone levels checked again. If he has low testosterone this could be worsening his mood. Review of Systems Constitutional: Denies: fever, chills, weakness, weight change Eyes: Denies: eye pain, vision change Ears, Nose, Throat: Denies: ear pain, throat pain, dental pain, hearing loss, congestion Cardiovascular: Denies: chest pain, palpitations, dyspnea on exertion Respiratory: Denies: cough, dyspnea, wheezes Gastrointestinal: Denies: abdominal pain, nausea, vomiting, diarrhea, constipation Musculoskeletal: Denies: joint swelling, joint pain Neurological: Denies: headache, weakness, numbness, memory loss Psychiatric: Reports: depression, anxiety, abnormal sleep pattern, panic attacks Results - Vital Signs Vital Signs: Temp Pulse Resp BP Pulse Ox 98.0 F 72 16 135/85 99 03/01/18 09:00 03/01/18 09:00 03/01/18 09:00 03/01/18 09:00 03/01/18 09:00 Assessment and Plan (1) Depression Current visit: Yes Status: Acute Plan: Continue hospitalization, Close observation, Suicide Precautions per unit protocol, Encourage participation in unit milieu, Group Therapy, Monitor sleep, Monitor appetite Risks, benefits, side effects, alternatives discussed w/pt: Yes Patient agreeable to treatment: Yes Qualifiers: Depression Type: major depressive disorder Major depression recurrence: recurrent Active/Remission status: currently active Major depression episode severity: moderate Qualified Code(s): F33.1 - Major depressive disorder, recurrent, moderate (2) JUNITO (generalized anxiety disorder) Current visit: Yes Status: Acute Plan: Continue hospitalization, Close observation, Suicide Precautions per unit protocol, Encourage participation in unit milieu, Group Therapy, Monitor sleep, Monitor appetite Risks, benefits, side effects, alternatives discussed w/pt: Yes Patient agreeable to treatment: Yes (3) Adverse reaction to SSRI (selective serotonin reuptake inhibitor) Current visit: Yes Status: Suspected Plan: Continue hospitalization, Close observation, Suicide Precautions per unit protocol, Encourage participation in unit milieu, Group Therapy, Monitor sleep, Monitor appetite Risks, benefits, side effects, alternatives discussed w/pt: Yes Patient agreeable to treatment: Yes Qualifiers: Encounter type: initial encounter Qualified Code(s): T43.225A - Adverse effect of selective serotonin reuptake inhibitors, initial encounter (4) Dysthymia Current visit: Yes Status: Acute Plan: Continue hospitalization, Close observation, Suicide Precautions per unit protocol, Encourage participation in unit milieu, Group Therapy, Monitor sleep, Monitor appetite Risks, benefits, side effects, alternatives discussed w/pt: Yes Patient agreeable to treatment: Yes Consult Discharge Plan - Plan Referrals: [facility] [Outside] - 03/05/18 3:50 pm (The above appointment is with Dr. Russell for outpatient psychiatric assessment and medication management services. You will also see Samantha Landis for outpatient mental health counseling services on 04/10/2018 at 11:00 AM. Please arrive 10 minutes early to complete the check-in process. Please bring your insurance card (or [facility]) and photo ID. If you are unable to keep this appointment, 24 hour business notice of cancellation is expected. If you miss your new patient appointment with any provider without providing appropriate notice, you cannot be re- scheduled for that service. The above appointment(s) reflects first availability. You may contact the office regularly to check for cancellations that may allow you to be seen sooner. The [facility] is the 1st building behind [facility] in [place], [place]. Please do not use GPS or mapping apps to locate the office, as they will take you to the wrong location. ) Psychiatry Exam - Constitutional Vitals: Temp Pulse Resp BP Pulse Ox 98.0 F 72 16 135/85 99 03/01/18 09:00 03/01/18 09:00 03/01/18 09:00 03/01/18 09:00 03/01/18 09:00 General appearance: age & developmentally appropriate, well-groomed, well- nourished - Musculoskeletal Gait: normal Station: relaxed Strength & Tone: normal for patient - Psychiatric Patient Orientation: Yes Person, Yes Time, Yes Place Level of alertness: Alert Behavior: calm, cooperative Psychomotor activity: Normal Eye Contact: Maintains Eye Contact Mood Description: Depressed Affect description: congruent with mood Speech Volume: Normal Speech pattern: normal rate, normal rhythm, normal tone, fluent, spontaneous Language & Vocabulary: consistent with education Thought Process: Linear Thought Content: No Suicidal ideation, No Homicidal ideation, No Overt delusions Perceptual Disturbances: No Auditory hallucinations, No Visual hallucinations Attention Span Ability: Capable of Focused Attention Memory Description: Grossly Intact Patient Reliability: Reliable Historian Fund of knowledge: Yes abstraction ability, Yes aware of current events Intelligence Estimate: Above [place] Judgment: Fair Insight: Partial
[2018-03-01] MEDS: BuPROPion XL (24 HR) 150 MG TABLET PO SCH (10:55)
[2018-03-01] MEDS: cloNIDine HCl 0.1 MG TABLET PO PRN (21:10)
[2018-03-01] MEDS: hydrOXYzine pamoate 25 MG CAPSULE PO PRN (21:10)
[2018-03-02] MEDS: *HR* LORazepam 1 MG TABLET PO SCH ×2 (09:10→21:00)
[2018-03-02] MEDS: Cyprohepatdine 4 MG TABLET PO SCH ×2 (09:10→20:59)
[2018-03-02] MEDS: BuPROPion XL (24 HR) 150 MG TABLET PO SCH (09:10)
[2018-03-02] MEDS: hydrOXYzine pamoate 25 MG CAPSULE PO PRN ×2 (10:08→21:02)
--- NOTE | 2018-03-02 10:47 | Psychiatry Progress Note ---
Date of Encounter: 03/02/18 Time of Encounter: 09:20 Subjective Interval history: Pt is a 52 yo,, male, who presents for mood and depression with recent hx of serotonin syndrome. Pt noted that he feels "a litttle better." Pt noted I still occasionally have thoughts to harm myself..nothing current though. Pt denied any side effects to current medications. Pt noted he felt safe and comfortable on the unit. Pt was in agreement with current treatment plan. Pt noted that he is doing alright today. Pt noted he slept alright last night. Pt noted his appetite is decreased. Pt rated his depression a 6, on a scale of zero to ten with ten being the worst and zero being none. Pt rate his anxiety a 6-7, on the same scale. Pt denied any auditory or visiual hallucinations. Pt denied any current thoughts to harm himself or anyone else. No TD noted, AIMS=0 Tobacco: Denies any current Alcohol: Denies any current Street: marijuana every other day or weekend. Caffeine: 2-3 drinks per day Pt denies any hx of Hep C, HIV, TBI or Seizures. 1.Interval hx 2.Continue current medications 3.Review current labs 4.Pt had an opportunity to ask questions and discuss current treatment plan. 5.Supportive therapy was provided 6.Pt encouraged to consider group or individual therapy 7.Pt was in agreement with treatment plan. 8.Pt was educated on the risks benefits and side effects of current medications. Review of Systems Constitutional: Denies: fever, chills, weakness, weight change Eyes: Denies: eye pain, vision change Ears, Nose, Throat: Denies: ear pain, throat pain, dental pain, hearing loss, congestion Cardiovascular: Denies: chest pain, palpitations, dyspnea on exertion Respiratory: Denies: cough, dyspnea, wheezes Gastrointestinal: Denies: abdominal pain, nausea, vomiting, diarrhea, constipation Musculoskeletal: Denies: joint swelling, joint pain Neurological: Denies: headache, weakness, numbness, memory loss Psychiatric: Reports: depression, anxiety, abnormal sleep pattern, panic attacks Results - Vital Signs Vital Signs: Temp Pulse Resp BP Pulse Ox 98.6 F 71 16 118/86 100 03/02/18 09:00 03/02/18 09:00 03/02/18 09:00 03/02/18 09:00 03/02/18 09:00 Assessment and Plan (1) Depression Current visit: Yes Status: Acute Plan: Continue hospitalization, Close observation, Suicide Precautions per unit protocol, Encourage participation in unit milieu, Group Therapy, Monitor sleep, Monitor appetite Risks, benefits, side effects, alternatives discussed w/pt: Yes Patient agreeable to treatment: Yes Qualifiers: Depression Type: major depressive disorder Major depression recurrence: recurrent Active/Remission status: currently active Major depression episode severity: moderate Qualified Code(s): F33.1 - Major depressive disorder, recurrent, moderate (2) JUNITO (generalized anxiety disorder) Current visit: Yes Status: Acute Plan: Continue hospitalization, Close observation, Suicide Precautions per unit protocol, Encourage participation in unit milieu, Group Therapy, Monitor sleep, Monitor appetite Risks, benefits, side effects, alternatives discussed w/pt: Yes Patient agreeable to treatment: Yes (3) Adverse reaction to SSRI (selective serotonin reuptake inhibitor) Current visit: Yes Status: Suspected Plan: Continue hospitalization, Close observation, Suicide Precautions per unit protocol, Encourage participation in unit milieu, Group Therapy, Monitor sleep, Monitor appetite Risks, benefits, side effects, alternatives discussed w/pt: Yes Patient agreeable to treatment: Yes Qualifiers: Encounter type: initial encounter Qualified Code(s): T43.225A - Adverse effect of selective serotonin reuptake inhibitors, initial encounter (4) Serotonergic syndrome Current visit: Yes Status: Suspected Risks, benefits, side effects, alternatives discussed w/pt: Yes Patient agreeable to treatment: Yes Consult Discharge Plan - Plan Referrals: [facility] [Outside] - 03/05/18 3:50 pm (The above appointment is with Dr. Russell for outpatient psychiatric assessment and medication management services. You will also see Samantha Landis for outpatient mental health counseling services on 04/10/2018 at 11:00 AM. Please arrive 10 minutes early to complete the check-in process. Please bring your insurance card (or [facility]) and photo ID. If you are unable to keep this appointment, 24 hour business notice of cancellation is expected. If you miss your new patient appointment with any provider without providing appropriate notice, you cannot be re- scheduled for that service. The above appointment(s) reflects first availability. You may contact the office regularly to check for cancellations that may allow you to be seen sooner. The [facility] is the [address] [place] [address] [facility], [place]. Please do not use GPS or mapping apps to locate the office, as they will take you to the wrong location. ) Psychiatry Exam - Constitutional Vitals: Temp Pulse Resp BP Pulse Ox 98.6 F 71 16 118/86 100 03/02/18 09:00 03/02/18 09:00 03/02/18 09:00 03/02/18 09:00 03/02/18 09:00 General appearance: age & developmentally appropriate, well-groomed, well- nourished - Musculoskeletal Gait: normal Station: relaxed Strength & Tone: normal for patient - Psychiatric Patient Orientation: Yes Person, Yes Time, Yes Place Level of alertness: Alert Behavior: calm, cooperative Psychomotor activity: Slowed Eye Contact: Maintains Eye Contact Mood Description: Depressed Affect description: congruent with mood, flat, dysphoric Speech Volume: Normal Speech pattern: normal rate, normal rhythm, normal tone, fluent, spontaneous Language & Vocabulary: consistent with education Thought Process: Linear, Goal Oriented Thought Content: No Suicidal ideation, No Homicidal ideation, No Overt delusions Perceptual Disturbances: No Auditory hallucinations, No Visual hallucinations Attention Span Ability: Capable of Focused Attention Memory Description: Grossly Intact Patient Reliability: Reliable Historian Fund of knowledge: Yes abstraction ability, Yes aware of current events Intelligence Estimate: Average Judgment: Fair Insight: Partial
[2018-03-02] MEDS: Baclofen 10 MG TABLET PO PRN ×2 (13:46→21:02)
[2018-03-03] MEDS: hydrOXYzine pamoate 25 MG CAPSULE PO PRN ×2 (01:57→21:55)
[2018-03-03] MEDS: cloNIDine HCl 0.1 MG TABLET PO PRN ×2 (01:57→21:56)
[2018-03-03] MEDS: *HR* LORazepam 1 MG TABLET PO SCH ×2 (08:50→21:56)
[2018-03-03] MEDS: Cyprohepatdine 4 MG TABLET PO SCH ×2 (08:50→21:55)
[2018-03-03] MEDS: BuPROPion XL (24 HR) 150 MG TABLET PO SCH (08:50)
--- NOTE | 2018-03-03 10:29 | Psychiatry Progress Note ---
Date of Encounter: 03/03/18 Time of Encounter: 10:00 Subjective Interval history: Pt is a 52 yo,, male, who presents for mood and depression with recent hx of serotonin syndrome. Pt noted that he feels "better today." Pt was in agreement with discharge planning for tomorrow. Pt was polite and courteous during the interview process. Pt denied any side effects to current medications. Pt noted he felt safe and comfortable on the unit. Pt was in agreement with current treatment plan. Pt noted that he is doing alright today. Pt noted he slept alright last night. Pt noted his appetite is okay. Pt rated his depression a 5, on a scale of zero to ten with ten being the worst and zero being none. Pt rate his anxiety a 4, on the same scale. Pt denied any auditory or visiual hallucinations. Pt denied any current thoughts to harm himself or anyone else. No TD noted, AIMS=0 Tobacco: Denies any current Alcohol: Denies any current Street: marijuana every other day or weekend. Caffeine: 2-3 drinks per day Pt denies any hx of Hep C, HIV, TBI or Seizures. 1.Interval hx 2.Continue current medications 3.Review current labs 4.Pt had an opportunity to ask questions and discuss current treatment plan. 5.Supportive therapy was provided 6.Pt encouraged to consider group or individual therapy 7.Pt was in agreement with treatment plan. 8.Pt was educated on the risks benefits and side effects of current medications. 9. Coordinated for D/C tomorrow Review of Systems Constitutional: Denies: fever, chills, weakness, weight change Eyes: Denies: eye pain, vision change Ears, Nose, Throat: Denies: ear pain, throat pain, dental pain, hearing loss, congestion Cardiovascular: Denies: chest pain, palpitations, dyspnea on exertion Respiratory: Denies: cough, dyspnea, wheezes Gastrointestinal: Denies: abdominal pain, nausea, vomiting, diarrhea, constipation Musculoskeletal: Denies: joint swelling, joint pain Neurological: Denies: headache, weakness, numbness, memory loss Psychiatric: Reports: depression, anxiety, abnormal sleep pattern, panic attacks Results - Vital Signs Vital Signs: Temp Pulse Resp BP Pulse Ox 98.8 F 75 18 131/82 97 03/03/18 09:00 03/03/18 09:00 03/03/18 09:00 03/03/18 09:00 03/03/18 09:00 Assessment and Plan (1) Depression Current visit: Yes Status: Acute Plan: Continue hospitalization, Close observation, Suicide Precautions per unit protocol, Encourage participation in unit milieu, Group Therapy, Monitor sleep, Monitor appetite Risks, benefits, side effects, alternatives discussed w/pt: Yes Patient agreeable to treatment: Yes Qualifiers: Depression Type: major depressive disorder Major depression recurrence: recurrent Active/Remission status: currently active Major depression episode severity: moderate Qualified Code(s): F33.1 - Major depressive disorder, recurrent, moderate (2) JUNITO (generalized anxiety disorder) Current visit: Yes Status: Acute Plan: Continue hospitalization, Close observation, Suicide Precautions per unit protocol, Encourage participation in unit milieu, Group Therapy, Monitor sleep, Monitor appetite Risks, benefits, side effects, alternatives discussed w/pt: Yes Patient agreeable to treatment: Yes (3) Adverse reaction to SSRI (selective serotonin reuptake inhibitor) Current visit: Yes Status: Suspected Plan: Continue hospitalization, Close observation, Suicide Precautions per unit protocol, Encourage participation in unit milieu, Group Therapy, Monitor sleep, Monitor appetite Risks, benefits, side effects, alternatives discussed w/pt: Yes Patient agreeable to treatment: Yes Qualifiers: Encounter type: initial encounter Qualified Code(s): T43.225A - Adverse effect of selective serotonin reuptake inhibitors, initial encounter (4) Serotonergic syndrome Current visit: Yes Status: Suspected Plan: Continue hospitalization, Close observation, Suicide Precautions per unit protocol, Encourage participation in unit milieu, Group Therapy, Monitor sleep, Monitor appetite Risks, benefits, side effects, alternatives discussed w/pt: Yes Patient agreeable to treatment: Yes Consult Discharge Plan - Plan Additional Instructions: Coordinate for discharge planning on 03/04/2018 Referrals: [facility] [Outside] - 03/05/18 3:50 pm (The above appointment is with Dr. Russell for outpatient psychiatric assessment and medication management services. You will also see Samantha Landis for outpatient mental health counseling services on 04/10/2018 at 11:00 AM. Please arrive 10 minutes early to complete the check-in process. Please bring your insurance card (or [facility] award letter) and photo ID. If you are unable to keep this appointment, 24 hour business notice of cancellation is expected. If you miss your new patient appointment with any provider without providing appropriate notice, you cannot be re- scheduled for that service. The above appointment(s) reflects first availability. You may contact the office regularly to check for cancellations that may allow you to be seen sooner. The [facility] is the 1st building behind [facility] in [place], [place]. Please do not use GPS or mapping apps to locate the office, as they will take you to the wrong location. ) Psychiatry Exam - Constitutional Vitals: Temp Pulse Resp BP Pulse Ox 98.8 F 75 18 131/82 97 03/03/18 09:00 03/03/18 09:00 03/03/18 09:00 03/03/18 09:00 03/03/18 09:00 General appearance: age & developmentally appropriate, well-groomed, well- nourished - Musculoskeletal Gait: normal Station: relaxed Strength & Tone: normal for patient - Psychiatric Patient Orientation: Yes Person, Yes Time, Yes Place Level of alertness: Alert Behavior: calm, cooperative Psychomotor activity: Normal Eye Contact: Maintains Eye Contact Mood Description: Euthymic/stable Affect description: congruent with mood, full range Speech Volume: Normal Speech pattern: normal rate, normal rhythm, normal tone, fluent, spontaneous Language & Vocabulary: consistent with education Thought Process: Linear, Goal Oriented Thought Content: No Suicidal ideation, No Homicidal ideation, No Overt delusions Perceptual Disturbances: No Auditory hallucinations, No Visual hallucinations Attention Span Ability: Capable of Focused Attention Memory Description: Grossly Intact Patient Reliability: Reliable Historian Fund of knowledge: Yes abstraction ability, Yes aware of current events Intelligence Estimate: Average Judgment: Limited Insight: Partial
[2018-03-03] MEDS: Baclofen 10 MG TABLET PO PRN ×2 (10:34→21:55)
[2018-03-04] MEDS: hydrOXYzine pamoate 25 MG CAPSULE PO PRN (01:30)
[2018-03-04] MEDS: *HR* LORazepam 1 MG TABLET PO SCH (08:11)
[2018-03-04] MEDS: Cyprohepatdine 4 MG TABLET PO SCH (08:11)
[2018-03-04] MEDS: BuPROPion XL (24 HR) 150 MG TABLET PO SCH (08:11)
[2018-03-04 09:29] VITALS: BP 151/103
--- NOTE | 2018-03-04 10:34 | Discharge Summary ---
Date of Encounter: 03/04/18 Time of Encounter: 09:00 Diagnosis - Discharge Diagnosis (1) Depression Status: Acute Qualifiers: Depression Type: major depressive disorder Major depression recurrence: r ecurrent Active/Remission status: currently active Major depression episode severity: moderate Qualified Code(s): F33.1 - Major depressive disorder, recurrent, moderate (2) JUNITO (generalized anxiety disorder) Status: Acute (3) Adverse reaction to SSRI (selective serotonin reuptake inhibitor) Status: Suspected Qualifiers: Encounter type: initial encounter Qualified Code(s): T43.225A - Adverse effect of selective serotonin reuptake inhibitors, initial encounter (4) Serotonergic syndrome Status: Suspected Medications - Discharge Medications Prescriptions: Baclofen [Lioresal] 10 mg PO TID PRN 30 Days #90 tablet PRN Reason: Spasms BuPROPion XL (24 HR) [Wellbutrin Xl] 150 mg PO DAILY 30 Days #30 tab.er.24h Buspirone HCl [Buspar] 15 mg PO TID 30 Days #90 tablet cloNIDine HCl [CloNIDine HCl] 0.1 mg PO TID 30 Days #90 tablet hydrOXYzine pamoate [Hydroxyzine Pamoate] 100 mg PO QID PRN 30 Days #90 capsule PRN Reason: Anxiety Pantoprazole Sodium [Protonix] 40 mg PO DAILY 30 Days #30 tablet. Quetiapine Fumarate [Seroquel] 600 mg PO HS 30 Days #60 tablet Baclofen [Lioresal] 10 mg PO TID PRN 30 Days #90 tablet 03/04/18 [Rx] BuPROPion XL (24 HR) [Wellbutrin Xl] 150 mg PO DAILY 30 Days #30 tab.er.24h 03/04/18 [Rx] Buspirone HCl [Buspar] 15 mg PO TID 30 Days #90 tablet 03/04/18 [Rx] Pantoprazole Sodium [Protonix] 40 mg PO DAILY 30 Days #30 tablet 03/04/18 [Rx] Quetiapine Fumarate [Seroquel] 600 mg PO HS 30 Days #60 tablet 03/04/18 [Rx] cloNIDine HCl [CloNIDine HCl] 0.1 mg PO TID 30 Days #90 tablet 03/04/18 [Rx] hydrOXYzine pamoate [Hydroxyzine Pamoate] 100 mg PO QID PRN 30 Days #90 capsule 03/04/18 [Rx] Allergy/AdvReac Type Severity Reaction Status Date / Time No Known Allergies Allergy Verified 02/25/18 13:56 Results Procedures and tests throughout hospitalization: Completed Lab Orders Category Date Time Status Acetaminophen Stat Lab 02/25/18 14:16 Completed Basic Metabolic Panel Stat Lab 02/25/18 14:16 Completed Complete Blood Count [HEME] Stat Lab 02/25/18 14:16 Completed Creatine Kinase Stat Lab 02/25/18 14:16 Completed Drug Screen, Urine [UCHEM] Stat Lab 02/25/18 14:40 Completed Ethanol Stat Lab 02/25/18 14:16 Completed Salicylate Stat Lab 02/25/18 14:16 Completed Urinalysis reflex Microscopic [URIN] Stat Lab 02/25/18 14:40 Completed Provider Date of admission: 02/25/18 17:14 Primary care physician: PCP NONE Discharging clinician: Morgan Alegre Psychiatry Exam - Constitutional Vitals: Temp Pulse Resp BP Pulse Ox 97.8 F 76 16 151/103 100 03/04/18 09:00 03/04/18 09:00 03/04/18 09:00 03/04/18 09:00 03/04/18 09:00 General appearance: age & developmentally appropriate, well-groomed, well- nourished - Musculoskeletal Gait: normal Station: relaxed Strength & Tone: normal for patient - Psychiatric Patient Orientation: Yes Person, Yes Time, Yes Place Level of alertness: Alert Behavior: calm, cooperative Psychomotor activity: Normal Eye Contact: Maintains Eye Contact Mood Description: Euthymic/stable Affect description: congruent with mood, full range Speech Volume: Normal Speech pattern: normal rate, normal rhythm, normal tone, fluent, spontaneous Language & Vocabulary: consistent with education Thought Process: Linear, Goal Oriented Thought Content: No Suicidal ideation, No Homicidal ideation, No Overt delusions Perceptual Disturbances: No Auditory hallucinations, No Visual hallucinations Attention Span Ability: Capable of Focused Attention Memory Description: Grossly Intact Patient Reliability: Reliable Historian Fund of knowledge: Yes abstraction ability, Yes aware of current events Intelligence Estimate: Average Judgment: Limited Insight: Partial Hospital Course Hospital course: Pt is a 52 yo, male, who presents for mood and depression with recent hx of serotonin syndrome. Pt noted that he feels "better today." Pt was in agreement with discharge today. Pt was polite and courteous during the interview process. Pt denied any side effects to current medications. Pt noted he felt safe and comfortable on the unit. Pt was in agreement with current treatment plan. Pt noted that he is doing alright today. Pt noted he slept alright last night. Pt noted his appetite is okay. Pt rated his depression a 4, on a scale of zero to ten with ten being the worst and zero being none. Pt rate his anxiety a 4, on the same scale. Pt denied any auditory or visiual hallucinations. Pt denied any current thoughts to harm himself or anyone else. Patient noted a significant reeducation in his depression and anxiety during his stay at [facility]. Pt noted that he slowly improved to the point that he was comfortable and safe to D/C home. Pt noted he felt his medications were working well and denied any current side effects. Treatment team encouraged Pt to stay out of bed and try to find activities to do, verbalized understanding. pt reported that he felt safe on the unit and comfortable for Home with his family. Pt Denied suicidal/homicidal ideations, denied any problems or concerns with medications or side effects. PT voiced progression towards treatment goals and was offered a copy of updated treatment plan completed during visit today. Denied any immediate needs or concerns. Pt denied any access to guns or weapons. Pt throughout his stay on [facility] psych pt felt like his medications were working and felt comfortable being discharged on these medications. Pt was advised to take all medications as prescribed, follow up with all scheduled appointments and abstain from any alcohol or illicit substances. Pt was in agreement. Pt felt safe and comfortable to be discharged to his home and follow up with [facility]. Pt was very optimistic about his D/C. Pt felt safe and comfortable for D/C. The patient was educated primarily by verbal means about his diagnoses and their manifestations in his life. The option for treatment including group individual therapy programming was offered to his and the use of medications with all their potential risks, benefits, and side-effects were discussed with the pt at length. Pt was given the opportunity to ask questions and he participated in the treatment and planning process. Pt felt ready and eager to be discharged from the from the [facility] to be discharged home. Pt felt he was safe for this disposition. Pt was considered to be able to participate in informed consent and decision-making with respect to medical, legal and financial issues at the time of his discharge from the [facility]. Pt denied TBI, Seizures, HEP C or HIV. No TD noted, AIMS=0 Assessment/Plan 1. Interval hx 2. Continue current medications 3. Review current labs 4. Pt had an opportunity to ask questions and discuss current treatment plan. 5. Supportive therapy was provided 6. Pt encouraged to consider group or individual therapy 7. Pt was in agreement with treatment plan. 8. Pt was educated on the risks benefits and side effects of current medications. 9. Continue wellbutrin 150 mg PO QAM for mood. 10 abstain from any alcohol or illict substances. 11. follow up with all sheduled appointments. 12. D/C Pt home Time spent discussing smoking cessation with patient: 3 to 10 minutes Does patient wish to continue nicotine replacement upon disc: No - Time Spent with Patient Total time spent providing and/or coordinating discharge services: Greater than 30 minutes Assessment and Plan - Patient/Caregiver Discharge Instructions Activity: resume usual activities as tolerated Diet: regular diet Additional Instructions: Coordinate for discharge planning on 03/04/2018 - Follow up Plan Follow up with: [facility] [Outside] - 03/05/18 3:50 pm (The above appointment is with Dr. Russell for outpatient psychiatric assessment and medication management services. You will also see Samantha Landis for outpatient mental health counseling services on 04/10/2018 at 11:00 AM. Please arrive 10 minutes early to complete the check-in process. Please bring your insurance card (or [facility]) and photo ID. If you are unable to keep this appointment, 24 hour business notice of cancellation is expected. If you miss your new patient appointment with any provider without providing appropriate notice, you cannot be re- scheduled for that service. The above appointment(s) reflects first availability. You may contact the office regularly to check for cancellations that may allow you to be seen sooner. The [facility] is the [facility] in [place], [place]. Please do not use GPS or mapping apps to locate the office, as they will take you to the wrong location. ) Overall status at discharge: Stable Disposition: Home, Self-Care Quality - Multiple Antipsychotics Patient discharged on 2 or more antipsychotic medications: No Procedures - Procedures Procedures: Medication Management, Crisis Stabilization, Supportive Therapy, Group Therapy, Psychoeducational Therapy
== END 2018-03-04 12:20 | disposition home or self-care (01) | DRG 885 ==
LOC: EMEROOARM 13:50 → 1ANU 17:14
PROVIDERS: ADMIT Psychiatry & Neurology Forensic Psychiatry; ATTEND Psychiatry & Neurology Forensic Psychiatry